=== PATIENT | male | born 2000 | race Caucasian/White ===

== ENCOUNTER 2022-02-23 09:45 | Emergency (ER) | payer OTHER ==
[2022-02-23 09:51] VITALS: BP 118/63; PULSE 71; RESP 18; TEMP 97.6
[2022-02-23] MEDS ORDERED: FAMOTIDINE 20 MG TAB PO STA (10:06)
--- NOTE | 2022-02-23 10:15 | ED ---
General Adult HPI - General Chief complaint: Abdominal Pain Stated complaint: Heartburn Time Seen by Provider: 02/23/22 10:00 Source: patient, RN notes reviewed, old records reviewed Mode of arrival: ambulatory Limitations: no limitations - History of Present Illness Initial comments: 21-year-old male, alert and oriented 4, presents ambulatory with complaints of 6 months of intermittent epigastric abdominal pain. Patient states that he also has been having intermittent diarrhea and constipation alternating. He denies any vomiting or fevers. States last night he had a lot of candy before going to bed and woke up this morning with burning epigastric pain which has now resolved. He does smoke marijuana daily and also vapes. Denies any medical history, no medicines on a daily basis, no previous surgeries. He does not have a primary care doctor. -: month(s) (6) Location: abdomen (Epigastric) Radiation: non-radiation Severity scale (1-10): 0 Quality: burning Consistency: now resolved Improves with: eating Worsens with: other (At night especially after eating candy) Associated Symptoms: other (Alternating diarrhea and constipation) Treatments Prior to Arrival: none - Related Data Previous Rx's Medication Instructions Recorded Famotidine [Pepcid] 20 mg PO BID #28 tablet 02/23/22 Allergies Allergy/AdvReac Type Severity Reaction Status Date / Time No Known Allergies Allergy Verified 02/23/22 09:51 Review of Systems ROS Statement: Those systems with pertinent positive or pertinent negative responses have been documented in the HPI. ROS Other: All systems not noted in ROS Statement are negative. Past Medical History Past Medical History: No Reported History Additional Past Medical History / Comment(s): ruptured left knee meniscus History of Any Multi-Drug Resistant Organisms: None Reported Past Surgical History: No Surgical Hx Reported Past Psychological History: No Psychological Hx Reported Smoking Status: Current every day smoker Past Alcohol Use History: Rare Past Drug Use History: Marijuana General Exam Limitations: no limitations General appearance: alert, in no apparent distress Head exam: Present: atraumatic, normocephalic, normal inspection Eye exam: Present: normal appearance. Absent: scleral icterus, conjunctival injection, periorbital swelling ENT exam: Present: normal exam, normal oropharynx, mucous membranes moist Neck exam: Present: normal inspection, full ROM. Absent: tenderness, meningismus, lymphadenopathy, thyromegaly Respiratory exam: Present: normal lung sounds bilaterally. Absent: respiratory distress, wheezes, rales, rhonchi, stridor, chest wall tenderness, accessory muscle use, decreased breath sounds Cardiovascular Exam: Present: regular rate, normal rhythm, normal heart sounds. Absent: JVD GI/Abdominal exam: Present: soft, normal bowel sounds. Absent: distended, tenderness, guarding, rebound, rigid, mass Extremities exam: Present: normal inspection, normal capillary refill. Absent: pedal edema Back exam: Present: normal inspection, full ROM. Absent: tenderness, CVA tenderness (R), CVA tenderness (L), rash noted Neurological exam: Present: alert, oriented X3, normal gait Psychiatric exam: Present: normal affect, normal mood Skin exam: Present: warm, dry, intact, normal color. Absent: rash, cyanosis, diaphoretic, petechiae, pallor Course Vital Signs 02/23/22 09:45 Temperature 97.6 F Pulse Rate 71 Respiratory 18 Rate Blood Pressure 118/63 O2 Sat by Pulse 100 Oximetry Medical Decision Making - Medical Decision Making Well-appearing 21-year-old male presenting with 6 months of intermittent epigastric abdominal pain with alternating diarrhea and constipation concerns. Patient states that he does smoke marijuana daily and vapes. No medical history. Patient was offered lab work and declined. He states that the pain is gone at this time but does need a work note. Patient was given Pepcid in the ER and directed to take the Pepcid twice a day. He was given referral to GI. Vital signs are stable. Abdomen is soft and nontender. Case discussed with Dr. Angela. 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 Return to the emergency room with any new or concerning symptoms including increased pain, persistent nausea , vomiting or fevers. Prescriptions: Famotidine [Pepcid] 20 mg PO BID #28 tablet Is patient prescribed a controlled substance at d/c from ED?: No Referrals: None,Stated [Primary Care Provider] - 1-2 days Tanya Maldonado MD [STAFF PHYSICIAN] - 1-2 days Time of Disposition: 10:14
== END 2022-02-23 10:50 | disposition home or self-care (01) ==
LOC: EC 09:45
DX: K21.9 Gastro-esophageal reflux disease without esophagitis (principal); F17.200 Nicotine dependence, unspecified, uncomplicated
CPT/HCPCS: 99284

== ENCOUNTER 2022-05-15 20:41 | Emergency (ER) | payer OTHER ==
[2022-05-15 21:10] VITALS: BP 121/86; PULSE 86; RESP 16; TEMP 98.6
[2022-05-15] MEDS ORDERED: IBUPROFEN 600 MG TAB PO STA (23:49)
[2022-05-15] MEDS ORDERED: guaiFENesin 600 MG TABLET.ER PO STA (23:50)
--- NOTE | 2022-05-15 23:52 | ED ---
URI HPI - General Chief Complaint: Upper Respiratory Infection Stated Complaint: Cough/Vomiting/Fever Time Seen by Provider: 05/15/22 23:33 Source: patient Mode of arrival: ambulatory Limitations: no limitations - History of Present Illness Initial Comments: Patient is a 21-year-old male presenting with chief complaint of cough and fever. Symptoms have been present for the last 2 days. Patient admits to dry cough. He also admits to some congestion and postnasal drip. Admits to sore throat. Denies any ear pain. Denies chest pain, shortness of breath, abdominal pain, nausea, vomiting, dysphasia, wheezing, sputum production, sinus pressure, diarrhea, hematochezia, melena, dysuria, hematuria. - Related Data Previous Rx's Medication Instructions Recorded Famotidine [Pepcid] 20 mg PO BID #28 tablet 02/23/22 Allergies Allergy/AdvReac Type Severity Reaction Status Date / Time No Known Allergies Allergy Verified 05/15/22 21:10 Review of Systems ROS Statement: Those systems with pertinent positive or pertinent negative responses have been documented in the HPI. ROS Other: All systems not noted in ROS Statement are negative. Past Medical History Past Medical History: No Reported History Additional Past Medical History / Comment(s): ruptured left knee meniscus History of Any Multi-Drug Resistant Organisms: None Reported Past Surgical History: No Surgical Hx Reported Past Psychological History: No Psychological Hx Reported Smoking Status: Current every day smoker Past Alcohol Use History: Rare Past Drug Use History: Marijuana General Exam Limitations: no limitations General appearance: alert, in no apparent distress Head exam: Present: atraumatic, normocephalic, normal inspection Eye exam: Present: normal appearance, EOMI. Absent: scleral icterus, periorbital swelling ENT exam: Present: normal exam, normal oropharynx, mucous membranes moist Neck exam: Present: normal inspection, full ROM. Absent: tenderness Respiratory exam: Present: normal lung sounds bilaterally. Absent: respiratory distress, wheezes, rales, rhonchi, stridor Cardiovascular Exam: Present: regular rate, normal rhythm, normal heart sounds. Absent: systolic murmur, diastolic murmur, rubs, gallop, clicks Neurological exam: Present: alert, oriented X3, CN II-XII intact Psychiatric exam: Present: normal affect, normal mood Skin exam: Present: warm, dry, intact, normal color. Absent: rash Course Vital Signs 05/15/22 21:08 Temperature 98.6 F Pulse Rate 86 Respiratory 16 Rate Blood Pressure 121/86 O2 Sat by Pulse 99 Oximetry Medical Decision Making - Medical Decision Making Patient is a 21-year-old male presenting with chief complaint of cough and fever. Symptoms have been present for the last 2 days. His examination is unremarkable. Patient has tested positive for Covid today. Educated him on supportive treatment and quarantined guidelines. Follow-up with PCP in one week. Report back to ER with any new or worsening symptoms. I discussed return parameters and answered all questions. Patient conveyed verbal understanding and agreed to the plan. My attending is Dr. Bustos. - Lab Data Lab Results 05/15/22 05/15/22 Range/Units 21:12 21:12 Coronavirus (PCR) Detected A (Not Detectd) Influenza Type A RNA Not Detected (Not Detectd) Influenza Type B (PCR) Not Detected (Not Detectd) Disposition Clinical Impression: COVID Disposition: HOME SELF-CARE Condition: Good Instructions (If sedation given, give patient instructions): Coronavirus Disease 2019 (COVID-19), How to Recover from COVID-19 at Home (ED) Additional Instructions: Follow-up with PCP in one week. Take Motrin and Tylenol as needed for fever and pain control. Take Mucinex as needed. Report back to ER with any new or worsening symptoms. Quarantined for 5 days starting from the first day of symptoms, if you are symptom-free by day 5 this is followed by 5 days of strict mask use in public. Is patient prescribed a controlled substance at d/c from ED?: No Referrals: None,Stated [Primary Care Provider] - 1-2 days Time of Disposition: 23:52
== END 2022-05-16 00:27 | disposition home or self-care (01) ==
LOC: EC 20:41
DX: U07.1 COVID-19 (principal); F17.200 Nicotine dependence, unspecified, uncomplicated; F12.90 Cannabis use, unspecified, uncomplicated
CPT/HCPCS: 87502; 87635; 99283

== ENCOUNTER 2022-08-15 21:12 | Emergency (ER) | payer OTHER ==
[2022-08-15 22:03] VITALS: BP 124/73; PULSE 68; RESP 16; TEMP 97.5
--- NOTE | 2022-08-16 00:57 | ED ---
URI HPI - General Chief Complaint: Upper Respiratory Infection Stated Complaint: Eye Issues Time Seen by Provider: 08/16/22 00:47 Source: patient, RN notes reviewed Mode of arrival: ambulatory Limitations: no limitations - History of Present Illness Initial Comments: This is a pleasant 21-year-old male who presents to emergency complaining of a clear runny nose, some sneezing, and itching eyes for the past few months. Patient states that he previously never has had ALLERGIES. Patient denies any fever. No shortness of breath. No wheezing. No skin rashes or lesions. No new medications or known exposures. No headache, no fever or chills, no changes in vision or hearing, no sore throat or difficulty with speech, no neck pain, no chest pain or shortness of breath, no abdominal pain, no nausea or vomiting, no changes in urination or bowel movements, no numbness or tingling, no extremity pain, no skin rashes or lesions. Past medical, surgical, social, and family history reviewed. - Related Data Previous Rx's Medication Instructions Recorded Famotidine [Pepcid] 20 mg PO BID #28 tablet 02/23/22 Fluticasone Nasal [place] [Flonase 2 spray EA NOSTRIL DAILY #16 gm 08/16/22 Nasal [place]] Loratadine [Alavert] 10 mg PO DAILY #30 tab 08/16/22 Olopatadine HCl [Patanol 0.1%] 1 drop BOTH EYES RT-BID PRN #5 ml 08/16/22 Allergies Allergy/AdvReac Type Severity Reaction Status Date / Time No Known Allergies Allergy Verified 05/15/22 21:10 Review of Systems ROS Statement: Those systems with pertinent positive or pertinent negative responses have been documented in the HPI. ROS Other: All systems not noted in ROS Statement are negative. Past Medical History Past Medical History: No Reported History Additional Past Medical History / Comment(s): ruptured left knee meniscus History of Any Multi-Drug Resistant Organisms: None Reported Past Surgical History: No Surgical Hx Reported Past Psychological History: No Psychological Hx Reported Smoking Status: Current every day smoker Past Alcohol Use History: Rare Past Drug Use History: Marijuana General Exam Limitations: no limitations General appearance: alert, in no apparent distress Head exam: Present: atraumatic, normocephalic, normal inspection Eye exam: Present: normal appearance, PERRL, EOMI, conjunctival injection (Lower palpebral conjunctiva). Absent: scleral icterus, periorbital swelling ENT exam: Present: normal exam, normal oropharynx, mucous membranes moist, TM's normal bilaterally, normal external ear exam, other (Clear postnasal drainage with cobblestoning. Patient also has cobblestoning to the lower palpebral conjunctivae. Clear runny nose with pale and edematous turbinates.). Absent: mucous membranes dry Neck exam: Present: normal inspection. Absent: tenderness, meningismus, lymphadenopathy Respiratory exam: Present: normal lung sounds bilaterally. Absent: respiratory distress, wheezes, rales, rhonchi, stridor Cardiovascular Exam: Present: regular rate, normal rhythm, normal heart sounds. Absent: systolic murmur, diastolic murmur, rubs, gallop, clicks GI/Abdominal exam: Present: soft, normal bowel sounds. Absent: distended, tenderness, guarding, rebound, rigid Extremities exam: Present: normal inspection, full ROM, normal capillary refill. Absent: tenderness, pedal edema, joint swelling, calf tenderness Back exam: Present: normal inspection Neurological exam: Present: alert, oriented X3, CN II-XII intact Psychiatric exam: Present: normal affect, normal mood Skin exam: Present: warm, dry, intact, normal color. Absent: rash Course Vital Signs 08/15/22 22:00 Temperature 97.5 F L Pulse Rate 68 Respiratory 16 Rate Blood Pressure 124/73 O2 Sat by Pulse 97 Oximetry Medical Decision Making - Medical Decision Making Patient symptomology consistent with ALLERGIC conjunctivitis and ALLERGIC rhinitis. We'll try ALLERGIC eyedrops, loratadine, and Flonase. Had a long discussion with the patient. COVID-19 testing was negative. Patient was not ill or toxic. Advised the patient to stop vaping Patient was told to return to the ER for any signs or symptoms worsen. Told to return immediately if any other problems arise. All questions answered. Treatment plan discussed. Patient in agreement Every effort has been made to ensure accuracy of this dictation. However, due to the limitations of electronic medical records and dictation devices, errors in charting still occur. Supervising physician Dr. Calderon - Lab Data Lab Results 08/15/22 Range/Units 22:03 Coronavirus (PCR) Not Detected (Not Detectd) Disposition Clinical Impression: Allergic rhinitis, Allergic conjunctivitis Disposition: HOME SELF-CARE Condition: Good Instructions (If sedation given, give patient instructions): Allergic Rhinitis (DC), Conjunctivitis (ED) Additional Instructions: Zyrtec, Flonase, and eyedrops as directed. Follow-up with your regular physician as directed. Return to the ER immediately if any symptoms worsen, new symptoms arise, or any other problems develop. Prescriptions: Loratadine [Alavert] 10 mg PO DAILY #30 tab Fluticasone Nasal [place] [Flonase Nasal [place]] 2 spray EA NOSTRIL DAILY #16 gm Olopatadine HCl [Patanol 0.1%] 1 drop BOTH EYES RT-BID PRN #5 ml PRN Reason: Allergy Symptoms Is patient prescribed a controlled substance at d/c from ED?: No Referrals: None,Stated [Primary Care Provider] - 1-2 days Time of Disposition: 00:57
== END 2022-08-16 01:36 | disposition home or self-care (01) ==
LOC: EC 21:12
DX: J30.9 Allergic rhinitis, unspecified (principal); H10.13 Acute atopic conjunctivitis, bilateral; F17.200 Nicotine dependence, unspecified, uncomplicated; Z20.822 Contact with and (suspected) exposure to COVID-19
CPT/HCPCS: 87635; 99283